=== PATIENT | female | born 1975 | race American Indian/Alaskan Native ===

== ENCOUNTER 2020-02-16 18:39 | Emergency (ER) | payer BC ==
[2020-02-16 18:59] VITALS: BP 152/93
--- NOTE | 2020-02-16 19:16 | Event Note ---
ED Screening Note ED Screening Note: CP that began today left sided feels like aching n/v states she vomited twice +diaphoresis +SOB +dry cough no pleuritic CP no leg swelling no fever no sick contact went to [place] 2 weeks ago no recent surgery has a mirena IUD PMHx asthma, rheumatic fever no allergies to meds +marijuana no tobacco use This initial assessment/diagnostic orders/clinical plan/treatment(s) is/are subject to change based on patients health status, clinical progression and re- assessment by fellow clinical providers in the ED. Further treatment and workup at subsequent clinical providers discretion. Patient/guardian urged not to elope from the ED as their condition may be serious if not clinically assessed and managed. Initial orders include: CP protocol
[2020-02-16 20:15] LABS: Basophils % (Auto) 0.6 % (0.0-1.8); Eosinophils % (Auto) 0.7 % (0.0-4.3); Hematocrit 43.7 % (30.3-42.9); Lymphocytes # (Auto) 2.5 K/mm3 (1.2-5.4); Mean Corpuscular HGB Conc 34 % (30-34); Mean Corpuscular Volume 94 fl (79-97); Monocytes # (Auto) 0.5 K/mm3 (0.0-0.8); Monocytes % (Auto) 6.4 % (0.0-7.3); Platelet Count 277 K/mm3 (140-440); Red Blood Count 4.66 M/mm3 (3.65-5.03); Red Cell Distribution Width 14.2 % (13.2-15.2)
[2020-02-16] MEDS ORDERED: ONDANSETRON 4 MG ODT TAB PO ONE (20:26)
[2020-02-16 20:41] LABS: Alanine Aminotransferase 13 units/L (7-56); Albumin 4.4 g/dL (3.9-5); BUN/Creatinine Ratio 11; Blood Urea Nitrogen 10 mg/dL (7-17); Calcium 10.1 mg/dL (8.4-10.2); Hemolysis Index 7
--- NOTE | 2020-02-16 20:42 | Emergency Department Report ---
ED Chest Pain HPI - General Chief Complaint: Chest Pain Stated Complaint: CHEST PAIN, SOB, N/V Time Seen by Provider: 02/16/20 19:14 Source: patient Mode of arrival: Ambulatory Limitations: No Limitations - History of Present Illness Initial Comments: . 45-year-old -[place] female patient with history of asthma presents with complaints of sudden onset of left-sided chest pain starting around 5 PM today. Patient describes the pain as a itching sharp sensation and rates her pain as a 5/10 in severity. She denies any heart history, however states her mom had history of heart disease. Patient also denies any cough, shortness of breath, fever/chills/sweats, leg pain/swelling, hemoptysis, history of DVT/PE. She admits to having an IUD and also had a flight to and from [facility] about 3 weeks ago. Patient also reports nausea and one episode of vomiting that started after the chest pain. No abdominal pain or hematemesis/coffee-ground emesis per patient - Related Data Allergies Allergy/AdvReac Type Severity Reaction Status Date / Time No Known Allergies Allergy Unverified 02/16/20 18:59 Heart Score - HEART Score History: Slightly suspicious EKG: Normal Age: < 45 Risk factors: 1-2 risk factors Troponin: < normal limit HEART Score: 1 ED Review of Systems ROS: Stated complaint: CHEST PAIN, SOB, N/V Other details as noted in HPI Constitutional: denies: chills, diaphoresis, fever, malaise, weakness Eyes: denies: vision change ENT: denies: throat pain Respiratory: denies: orthopnea Cardiovascular: chest pain. denies: edema, syncope Endocrine: denies: excessive sweating Gastrointestinal: nausea, vomiting. denies: abdominal pain, diarrhea, constipation, hematemesis, melena, hematochezia Genitourinary: denies: urgency, dysuria, frequency Musculoskeletal: denies: back pain, arthralgia Skin: denies: rash, change in color Neurological: denies: headache, weakness, paresthesias Hematological/Lymphatic: easy bruising. denies: easy bleeding, swollen glands ED Past Medical Hx - Past Medical History Previous Medical History?: Yes Hx Asthma: Yes - Social History Smoking Status: Never Smoker Substance Use Type: None ED Physical Exam - General Limitations: No Limitations General appearance: alert, in no apparent distress - Head Head exam: Present: atraumatic, normocephalic - Eye Eye exam: Present: normal appearance. Absent: scleral icterus - Neck Neck exam: Present: normal inspection, full ROM - Respiratory Respiratory exam: Present: normal lung sounds bilaterally. Absent: respiratory distress - Cardiovascular Cardiovascular Exam: Present: regular rate, normal rhythm - GI/Abdominal GI/Abdominal exam: Present: soft, normal bowel sounds. Absent: distended, tenderness, guarding, rebound, rigid - Extremities Exam Extremities exam: Present: full ROM, calf tenderness (Left) - Back Exam Back exam: Present: full ROM - Neurological Exam Neurological exam: Present: alert, oriented X3, normal gait - Psychiatric Psychiatric exam: Present: normal affect, normal mood - Skin Skin exam: Present: warm, dry, intact, normal color. Absent: rash, cyanosis, diaphoretic, ecchymosis ED Course Vital Signs 02/16/20 18:56 Temperature 97.9 F Pulse Rate 80 Respiratory 18 Rate Blood Pressure 152/93 O2 Sat by Pulse 97 Oximetry ED Medical Decision Making - Lab Data Result diagrams: 02/16/20 19:55 02/16/20 19:55 Lab Results 02/16/20 02/16/20 Range/Units 19:55 19:55 WBC 7.1 (4.5-11.0) K/mm3 RBC 4.66 (3.65-5.03) M/mm3 Hgb 15.0 H (10.1-14.3) gm/dl Hct 43.7 H (30.3-42.9) % MCV 94 (79-97) fl MCH 32 (28-32) pg MCHC 34 (30-34) % RDW 14.2 (13.2-15.2) % Plt Count 277 (140-440) K/mm3 Lymph % (Auto) 36.0 H (13.4-35.0) % [place] % (Auto) 6.4 (0.0-7.3) % Eos % (Auto) 0.7 (0.0-4.3) % Baso % (Auto) 0.6 (0.0-1.8) % Lymph # (Auto) 2.5 (1.2-5.4) K/mm3 [place] # (Auto) 0.5 (0.0-0.8) K/mm3 Eos # (Auto) 0.0 (0.0-0.4) K/mm3 Baso # (Auto) 0.0 (0.0-0.1) K/mm3 Seg Neutrophils % 56.3 (40.0-70.0) % Seg Neutrophils # 4.0 (1.8-7.7) K/mm3 Troponin T < 0.010 (0.00-0.029) ng/mL - EKG Data EKG shows normal: sinus rhythm Rate: normal - EKG Data Interpretation: normal EKG - Medical Decision Making . 45-year-old -Romanian female patient with history of asthma presents with complaints of sudden onset of left-sided chest pain starting around 5 PM today. Patient describes the pain as a itching sharp sensation and rates her pain as a 5/10 in severity. She denies any heart history, however states her mom had history of heart disease. Patient also denies any cough, shortness of breath, fever/chills/sweats, leg pain/swelling, hemoptysis, history of DVT/PE. She admits to having an IUD and also had a flight to and from [facility] about 3 weeks ago. Patient also reports nausea and one episode of vomiting that started after the chest pain. No abdominal pain or hematemesis/coffee-ground emesis per patient Patient left AMA Initial and repeat troponin were normal, chest x-ray is normal, no significant findings noted on CBC or CMP. Heart score = 1. PERC score = 2 given control and recent travel-dimer is normal. Critical care attestation.: If time is entered above; I have spent that time in minutes in the direct care of this critically ill patient, excluding procedure time. ED Disposition Clinical Impression: Chest pain Qualifiers: Chest pain type: other chest pain Qualified Code(s): R07.89 - Other chest pain; R07.8 - Other chest pain Disposition: - LEFT AGAINST MED ADVICE Is pt being admited?: No Condition: Stable Instructions: Chest Pain (ED) Referrals: PRIMARY CARE, [Primary Care Provider] - 3-5 Days Forms: AMA Form
--- NOTE | 2020-02-16 21:15 | XRay Report ---
CHEST 2 VIEWS INDICATION / CLINICAL INFORMATION: Chest Pain. COMPARISON: None available. FINDINGS: SUPPORT DEVICES: None. HEART / MEDIASTINUM: No significant abnormality. LUNGS / PLEURA: No significant pulmonary or pleural abnormality. No pneumothorax. ADDITIONAL FINDINGS: No significant additional findings. IMPRESSION: 1. No acute findings. Signer Name: Antonio Valladares MD Signed: 02/16/2020 9:10 PM Workstation Name: [id number]
[2020-02-16 22:41] LABS: INR 1.04 (0.87-1.13); Partial Thromboplastin Time 28.2 Sec. (24.2-36.6)
[2020-02-16] MEDS ORDERED: ALUM-MAG HYDROXIDE-SIMETHICONE 200-200-20MG/5ML ORAL LIQD 30 ML PO ONE (22:50)
[2020-02-16] MEDS ORDERED: FAMOTIDINE 20 MG TAB PO ONE (22:50)
== END 2020-02-17 00:03 | disposition left against medical advice (07) ==
LOC: ED 18:39
DX: R07.89 Other chest pain (principal); J45.909 Unspecified asthma, uncomplicated; Z53.21 Procedure and treatment not carried out due to patient leaving prior to being seen by health care provider
CPT/HCPCS: 36415; 71046; 80053; 83690; 84484; 84703; 85025; 85379; 85610; 85730; 93005; Q0162